=== PATIENT | male | born 1995 | race Caucasian/White ===

== ENCOUNTER 2017-01-08 14:44 | Emergency (ER) | payer OTHER ==
[~2017-01-08] VITALS: Ht 185.4 cm; Wt 100.0 kg
[~2017-01-08 14:44] MED LIST: IBUP-1672 PO
[2017-01-08 15:22] VITALS: BP 146/74
[2017-01-08] MEDS ORDERED: AMOX TR/POT CLAV 875 MG/125 MG TABLET PO ONE (15:45)
[2017-01-09 08:07] LABS: HEPATITIS Bs ANTIGEN SCREEN P Negative (Negative); HEPATITIS C AB SCREEN 0.3 s/co ratio (0.0-0.9)
== END 2017-01-08 16:17 | disposition home or self-care (01) ==
LOC: EMS 14:46
DX: S51.852A Open bite of left forearm, initial encounter (principal); Y04.1XXA Assault by human bite, initial encounter; Y93.89 Activity, other specified; Y92.512 Supermarket, store or market as the place of occurrence of the external cause; Y99.8 Other external cause status
CPT/HCPCS: 80074; 87389; 99284